=== PATIENT | female | born 1995 | race American Indian/Alaskan Native ===

== ENCOUNTER 2019-12-21 20:40 | Emergency (ER) | payer SELFPAY ==
[2019-12-21 20:50] VITALS: BP 129/86
--- NOTE | 2019-12-21 22:09 | Emergency Department Report ---
Blank Doc - Documentation Documentation: 24-year-old female that presents with abdominal pain and n/v. This initial assessment/diagnostic orders/clinical plan/treatment(s) is/are subject to change based on patient's health status, clinical progression and re- assessment by fellow clinical providers in the ED. Further treatment and workup at subsequent clinical providers discretion. Patient/guardians urged not to elope from the ED as their condition may be serious if not clinically assessed and managed. Initial orders include: 1- Patient sent to [facility] for further evaluation and treatment 2- labs 3- UA
[2019-12-21 22:53] LABS: Basophils % (Auto) 0.6 % (0.0-1.8); Eosinophils # (Auto) 0.2 K/mm3 (0.0-0.4); Hematocrit 40.7 % (30.3-42.9); Hemoglobin 13.9 gm/dl (10.1-14.3); Lymphocytes # (Auto) 1.7 K/mm3 (1.2-5.4); Mean Corpuscular HGB Conc 34 % (30-34); Mean Corpuscular Volume 90 fl (79-97); Monocytes # (Auto) 1.2 K/mm3 (0.0-0.8); Monocytes % (Auto) 15.9 % (0.0-7.3); Platelet Count 214 K/mm3 (140-440); Red Blood Count 4.54 M/mm3 (3.65-5.03); Red Cell Distribution Width 13.8 % (13.2-15.2)
[2019-12-21 23:07] LABS: Bilirubin,Urine NEG (Negative); Blood,Urine NEG (Negative); Color,Urine Yellow (Yellow); Mucus,Urine 2+ /HPF; Protein,Urine <15 mg/dL mg/dL (Negative); Urobilinogen,Urine < 2.0 mg/dL (<2.0)
[2019-12-21 23:14] LABS: Alanine Aminotransferase 7 units/L (7-56); Albumin 4.4 g/dL (3.9-5); BUN/Creatinine Ratio 13; Blood Urea Nitrogen 12 mg/dL (7-17); Calcium 8.9 mg/dL (8.4-10.2)
[2019-12-21 23:15] LABS: Hemolysis Index 23
[2019-12-21] MEDS ORDERED: ALBUTEROL 2.5 MG/3 ML NEBU IH ONE (23:47)
[2019-12-21] MEDS ORDERED: predniSONE 20 MG TAB PO ONE (23:47)
--- NOTE | 2019-12-22 01:10 | Emergency Department Report ---
ED Abdominal Pain HPI - General Chief Complaint: Abdominal Pain Stated Complaint: BELLY BUTTON PAIN Time Seen by Provider: 12/21/19 22:03 Source: patient Mode of arrival: Ambulatory Limitations: No Limitations - History of Present Illness Initial Comments: Ms. Valdes is a 24-year-old female with hx of asthma,that presents with lower abdominal pain and n/v x 3 weeks. pt denies fever or chills. She states she believes she is LMP 10/23/2019. pt denies vaginal bleeding, no vaginal discharge no pelivic discomfort. There is no back pain , no dysuria, frequency, or urgency. pt denies concern for STI. Symptoms are exacerbated by nothing ,Symptoms are relieved by nothing. MD Complaint: abdominal pain Onset/Timin -: week(s) Location: LLQ, RLQ Radiation: LLQ, RLQ Migration to: no migration Severity: moderate Severity scale (0 -10): 3 Quality: cramping Consistency: intermittent Improves With: nothing Worsens With: movement Associated Symptoms: syncope. denies: nausea, vomiting, diarrhea, fever, chills, dysuria, melena - Related Data LMP Date: 10/23/19 Previous Rx's Medication Instructions Recorded Last Taken Type Albuterol INH(or & Nicu Only) 2 puff IH QID PRN #8.5 gram 12/22/19 Unknown Rx [ProAir HFA Inhaler] Ibuprofen [Motrin 800 MG tab] 800 mg PO Q8HR PRN #30 tablet 12/22/19 Unknown Rx predniSONE [Deltasone] 40 mg PO QDAY 5 Days #10 tab 12/22/19 Unknown Rx Allergies Allergy/AdvReac Type Severity Reaction Status Date / Time shellfish derived Allergy Unknown Verified 12/21/19 20:44 ED Review of Systems ROS: Stated complaint: BELLY BUTTON PAIN Other details as noted in HPI Constitutional: denies: chills, fever Eyes: denies: eye pain, eye discharge, vision change ENT: denies: ear pain, throat pain Respiratory: denies: cough, shortness of breath, wheezing Cardiovascular: denies: chest pain, palpitations Endocrine: no symptoms reported Gastrointestinal: abdominal pain (cramping ). denies: nausea, vomiting Genitourinary: denies: urgency, dysuria, discharge Musculoskeletal: denies: back pain, joint swelling, arthralgia Skin: denies: rash, lesions Neurological: denies: headache, weakness, paresthesias Psychiatric: denies: anxiety, depression Hematological/Lymphatic: denies: easy bleeding, easy bruising ED Past Medical Hx - Past Medical History Previous Medical History?: No - Social History Smoking Status: Never Smoker Substance Use Type: Marijuana - Medications Home Medications: Home Medications Medication Instructions Recorded Confirmed Last Taken Type Albuterol INH(or & Nicu Only) 2 puff IH QID PRN #8.5 gram 12/22/19 Unknown Rx [ProAir HFA Inhaler] Ibuprofen [Motrin 800 MG tab] 800 mg PO Q8HR PRN #30 tablet 12/22/19 Unknown Rx predniSONE [Deltasone] 40 mg PO QDAY 5 Days #10 tab 12/22/19 Unknown Rx ED Physical Exam - General Limitations: No Limitations General appearance: alert, in no apparent distress - Head Head exam: Present: atraumatic, normocephalic - Eye Eye exam: Present: normal appearance - ENT ENT exam: Present: mucous membranes moist - Neck Neck exam: Present: normal inspection, full ROM. Absent: tenderness - Respiratory Respiratory exam: Present: normal lung sounds bilaterally, wheezes (exp wheezing bilat ). Absent: respiratory distress, chest wall tenderness - Cardiovascular Cardiovascular Exam: Present: regular rate, normal rhythm, normal heart sounds. Absent: systolic murmur, diastolic murmur, rubs, gallop - GI/Abdominal GI/Abdominal exam: Present: soft, normal bowel sounds. Absent: distended, tenderness, guarding, rebound, rigid, bruit, hernia - Rectal Rectal exam: Present: deferred - Extremities Exam Extremities exam: Present: normal inspection, full ROM, normal capillary refill. Absent: tenderness - Back Exam Back exam: Present: normal inspection, full ROM. Absent: tenderness, CVA tenderness (R), CVA tenderness (L) - Neurological Exam Neurological exam: Present: alert, oriented X3, CN II-XII intact, normal gait - Psychiatric Psychiatric exam: Present: normal affect, normal mood - Skin Skin exam: Present: warm, dry, intact, normal color. Absent: rash ED Course Vital Signs 12/21/19 12/21/19 12/22/19 20:47 22:03 00:10 Temperature 99.4 F 99.4 F Pulse Rate 99 H 89 Pulse Rate [ 91 H Anterior Bilateral Throughout] Respiratory 18 18 Rate Respiratory 17 Rate [Anterior Bilateral Throughout] Blood Pressure 129/86 129/86 O2 Sat by Pulse 97 100 Oximetry ED Medical Decision Making - Lab Data Result diagrams: 12/21/19 22:37 12/21/19 22:37 Labs 12/21/19 12/21/19 12/21/19 22:20 22:37 22:37 WBC 7.6 RBC 4.54 Hgb 13.9 Hct 40.7 MCV 90 MCH 31 MCHC 34 RDW 13.8 Plt Count 214 Lymph % (Auto) 23.0 [place] % (Auto) 15.9 H Eos % (Auto) 2.0 Baso % (Auto) 0.6 Lymph # 1.7 [place] # 1.2 H Eos # 0.2 Baso # 0.0 Seg Neutrophils % 58.5 Seg Neutrophils # 4.4 Sodium 138 Potassium 3.5 L Chloride 101.6 Carbon Dioxide 21 L Anion Gap 19 BUN 12 Creatinine 0.9 Estimated GFR > 60 BUN/Creatinine Ratio 13 Glucose 106 H Calcium 8.9 Total Bilirubin < 0.20 AST 16 ALT 7 Alkaline Phosphatase 48 Total Protein 7.2 Albumin 4.4 Albumin/Globulin Ratio 1.6 Lipase 29 HCG, Qual Urine Color Yellow Urine Turbidity Slightly-cloudy Urine pH 5.0 Ur Specific [place] 1.031 H Urine Protein <15 mg/dl Urine Glucose (UA) Neg Urine Ketones Neg Urine Blood Neg Urine Nitrite Neg Urine Bilirubin Neg Urine Urobilinogen < 2.0 Ur Leukocyte Esterase Neg Urine WBC (Auto) 1.0 Urine RBC (Auto) 1.0 U Epithel Cells (Auto) 13.0 Urine Mucus 2+ 12/21/19 22:37 WBC RBC Hgb Hct MCV MCH MCHC RDW Plt Count Lymph % (Auto) [place] % (Auto) Eos % (Auto) Baso % (Auto) Lymph # [place] # Eos # Baso # Seg Neutrophils % Seg Neutrophils # Sodium Potassium Chloride Carbon Dioxide Anion Gap BUN Creatinine Estimated GFR BUN/Creatinine Ratio Glucose Calcium Total Bilirubin AST ALT Alkaline Phosphatase Total Protein Albumin Albumin/Globulin Ratio Lipase HCG, Qual Negative Urine Color Urine Turbidity Urine pH Ur Specific [place] Urine Protein Urine Glucose (UA) Urine Ketones Urine Blood Urine Nitrite Urine Bilirubin Urine Urobilinogen Ur Leukocyte Esterase Urine WBC (Auto) Urine RBC (Auto) U Epithel Cells (Auto) Urine Mucus - Medical Decision Making test is negative, wheezing resolved after neb tx. ,pt advises that hcg is neg, she pt advises all pain is resolved, breathing is improved, exam is normal , no wheezing, no abd tenderness, all labs normal. she requests albuterol refill, will refill same, short burst steroid, ibuprofen prn, follow up with [facility], follow up with pcp. Critical care attestation.: If time is entered above; I have spent that time in minutes in the direct care of this critically ill patient, excluding procedure time. ED Disposition Clinical Impression: Wheezing Abdominal pain Qualifiers: Abdominal location: lower abdomen, unspecified Qualified Code(s): R10.30 - Lower abdominal pain, unspecified Disposition: TO HOME OR SELFCARE Is pt being admited?: No Does the pt Need Aspirin: No Condition: Stable Instructions: Abdominal Pain (ED) Prescriptions: predniSONE [Deltasone] 40 mg PO QDAY 5 Days #10 tab Ibuprofen [Motrin 800 MG tab] 800 mg PO Q8HR PRN #30 tablet PRN Reason: pain Albuterol INH(or & Nicu Only) [ProAir HFA Inhaler] 2 puff IH QID PRN #8.5 gram PRN Reason: Shortness Of Breath Referrals: EBONIE CALLEJAS MD [Staff Physician] - 3-5 Days Forms: Work/School Release Form(ED) Time of Disposition: 01:23
== END 2019-12-22 01:30 | disposition home or self-care (01) ==
LOC: ED 20:40
DX: R10.30 Lower abdominal pain, unspecified (principal); R06.2 Wheezing; F12.90 Cannabis use, unspecified, uncomplicated; Z91.013 Allergy to seafood; Z79.899 Other long term (current) drug therapy
CPT/HCPCS: 36415; 80053; 81001; 83690; 84703; 85025; 94640; 99283; J7512; 94644

== ENCOUNTER 2020-02-10 16:24 | Emergency (ER) | payer OTHER ==
--- NOTE | 2020-02-10 18:05 | Emergency Department Report ---
ED General Adult HPI - General Chief complaint: Weakness Stated complaint: POSS /FATIGUE Time Seen by Provider: 02/10/20 17:35 Source: patient Mode of arrival: Ambulatory Limitations: No Limitations - History of Present Illness Initial comments: Patient is a 24-year-old female presents emergency room with complaints of "her body not feeling right" that began yesterday. She states yesterday she was working standing on her feet and she began to feel overheated and lightheaded and sat down on the floor. She did not actually have a syncopal episode and did not hit her head. She states that she also has nausea and fatigue. Patient states that she went to a clinic 2 weeks ago and was told that she is . She states her last menstrual cycle was in December. She denies any abdominal pain, vaginal bleeding, urinary symptoms. She denies any past medical history or allergies to medications. /P:0/A:2 - Related Data Previous Rx's Medication Instructions Recorded Last Taken Type Albuterol INH(or & Nicu Only) 2 puff IH QID PRN #8.5 gram 12/22/19 Unknown Rx [ProAir HFA Inhaler] Ibuprofen [Motrin 800 MG tab] 800 mg PO Q8HR PRN #30 tablet 12/22/19 Unknown Rx predniSONE [Deltasone] 40 mg PO QDAY 5 Days #10 tab 12/22/19 Unknown Rx Allergies Allergy/AdvReac Type Severity Reaction Status Date / Time shellfish derived Allergy Unknown Verified 12/21/19 20:44 ED Review of Systems ROS: Stated complaint: POSS /FATIGUE Other details as noted in HPI Comment: All other systems reviewed and negative ED Past Medical Hx - Past Medical History Previous Medical History?: No - Surgical History Past Surgical History?: Yes Additional Surgical History: Right foot surgery - Social History Smoking Status: Never Smoker Substance Use Type: Marijuana - Medications Home Medications: Home Medications Medication Instructions Recorded Confirmed Last Taken Type Albuterol INH(or & Nicu Only) 2 puff IH QID PRN #8.5 gram 12/22/19 Unknown Rx [ProAir HFA Inhaler] Ibuprofen [Motrin 800 MG tab] 800 mg PO Q8HR PRN #30 tablet 12/22/19 Unknown Rx predniSONE [Deltasone] 40 mg PO QDAY 5 Days #10 tab 12/22/19 Unknown Rx ED Physical Exam - General Limitations: No Limitations General appearance: alert, in no apparent distress - Head Head exam: Present: atraumatic, normocephalic - Eye Eye exam: Present: normal appearance, PERRL, EOMI - ENT ENT exam: Present: mucous membranes moist - Respiratory Respiratory exam: Present: normal lung sounds bilaterally. Absent: respiratory distress, wheezes, rales, rhonchi, stridor, chest wall tenderness, accessory muscle use, decreased breath sounds, prolonged expiratory - Cardiovascular Cardiovascular Exam: Present: regular rate, normal rhythm, normal heart sounds. Absent: systolic murmur, diastolic murmur, rubs, gallop - GI/Abdominal GI/Abdominal exam: Present: soft, normal bowel sounds. Absent: distended, tenderness, guarding, rebound, rigid - Neurological Exam Neurological exam: Present: alert, oriented X3, CN II-XII intact, normal gait. Absent: motor sensory deficit - Psychiatric Psychiatric exam: Present: normal affect, normal mood - Skin Skin exam: Present: warm, dry, intact ED Course Vital Signs 02/10/20 02/10/20 16:31 21:10 Temperature 98.2 F 97.9 F Pulse Rate 87 68 Respiratory 16 16 Rate Blood Pressure 127/89 137/86 [Right] O2 Sat by Pulse 98 100 Oximetry ED Medical Decision Making - Lab Data Result diagrams: 02/10/20 17:59 02/10/20 17:59 - EKG Data EKG shows normal: sinus rhythm, axis, intervals, QRS complexes, ST-T waves Rate: tachycardia (101) - Radiology Data Radiology results: report reviewed US OB <= 14 weeks fetus, US OB transvaginal INDICATION / CLINICAL INFORMATION: , cramping. COMPARISON: None available. FINDINGS: Single viable intrauterine gestation is demonstrated with a crown-rump length of 14 mm. This would correspond to a 7 week 5 day gestation. Heart rate was observed at a rate of 145 bpm. A 1.2 cm right ovarian cyst is identified. The left ovary is normal. There are no fluid collections seen in the cul-de-sac. IMPRESSION: 1. Single viable 7 week 5 day intrauterine gestation. Signer Name: Marcos Lawson MD Signed: 02/10/2020 8:51 PM Workstation Name: [id number] Transcribed By: BRENDA Dictated By: Marcos Lawson MD Electronically Authenticated By: Marcos Lawson MD Signed Date/Time: 02/10/202050 DD/ 48 TD/TT: - Medical Decision Making Patient is a 24-year-old female presents emergency room with complaints of "her body not feeling right" that began yesterday. She states yesterday she was working standing on her feet and she began to feel overheated and lightheaded and sat down on the floor. She did not actually have a syncopal episode and did not hit her head. She states that she also has nausea and fatigue. Patient states that she went to a clinic 2 weeks ago and was told that she is . She states her last menstrual cycle was in December. She denies any abdominal pain, vaginal bleeding, urinary symptoms. She denies any past medical history or allergies to medications. /P:0/A:2. Vitals are normal. No abnormality on physical examination as documented in chart. EKG is within normal limits. Mild elevation in white blood cell count, very mild dehydration, patient is tolerating p.o. intake, encouraged increasing oral intake, UA without evidence of [place]TI, [place] [id number]. OB US: 1. Single viable 7 week 5 day intrauterine gestation. Patient denies any symptoms currently. Discussed all results with patient. Patient will be referred to an [facility] INSPECT[facility]. advised pt Please increase your fluid intake. Please take a vitamin [id number]. Follow-up with WE[facility] AND MEASURES INSPECTOR. Return to emergency room for any new or worsening symptoms. - Differential Diagnosis IUP, ectopic, anemia, ovarian cyst, miscarriage, UTI Critical care attestation.: If time is entered above; I have spent that time in minutes in the direct care of this critically ill patient, excluding procedure time. ED Disposition Clinical Impression: Lightheadedness, Right ovarian cyst Qualifiers: Weeks of gestation: less than 8 weeks Qualified Code(s): Z3A.01 - Less than 8 weeks gestation of Disposition: DC-01 TO HOME OR SELFCARE Is pt being admited?: No Does the pt Need Aspirin: No Condition: Stable Instructions: (ED), Ovarian Cyst (ED), Lightheadedness (ED) Additional Instructions: Please increase your fluid intake. Please take a vitamin [id number]. Follow-up with WE[facility]S AND MEASURES INSPECTOR. Return to emergency room for any new or worsening symptoms. Referrals: [facility] [Provider Group] - 3-5 Days [facility] [Provider Group] - 3-5 Days [facility] [Provider Group] - 3-5 Days [facility] [Provider Group] - 3-5 Days Time of Disposition: 21:01 Print Language: CITIZEN OF [place]
[2020-02-10 18:10] LABS: Basophils # (Auto) 0.1 K/mm3 (0.0-0.1); Basophils % (Auto) 0.6 % (0.0-1.8); Eosinophils # (Auto) 0.1 K/mm3 (0.0-0.4); Hematocrit 39.3 % (30.3-42.9); Hemoglobin 12.8 gm/dl (10.1-14.3); Lymphocytes # (Auto) 3.2 K/mm3 (1.2-5.4); Lymphocytes % (Auto) 24.3 % (13.4-35.0); Mean Corpuscular HGB Conc 33 % (30-34); Mean Corpuscular Volume 90 fl (79-97); Monocytes # (Auto) 0.9 K/mm3 (0.0-0.8); Monocytes % (Auto) 6.5 % (0.0-7.3); Platelet Count 263 K/mm3 (140-440); Red Blood Count 4.37 M/mm3 (3.65-5.03); Red Cell Distribution Width 13.1 % (13.2-15.2)
[2020-02-10 18:32] LABS: Alanine Aminotransferase 10 units/L (7-56); Albumin 4.3 g/dL (3.9-5); BUN/Creatinine Ratio 17; Blood Urea Nitrogen 10 mg/dL (7-17); Calcium 9.5 mg/dL (8.4-10.2); Hemolysis Index 10
[2020-02-10 18:45] LABS: HCG Qualitative,Urine Positive (Negative)
[2020-02-10 18:46] LABS: Bilirubin,Urine NEG (Negative); Blood,Urine LG (Negative); Color,Urine Yellow (Yellow); Mucus,Urine FEW /HPF; Protein,Urine <15 mg/dL mg/dL (Negative); Urobilinogen,Urine < 2.0 mg/dL (<2.0)
--- NOTE | 2020-02-10 20:55 | Ultrasound Report ---
US OB <= 14 weeks fetus, US OB transvaginal INDICATION / CLINICAL INFORMATION: , cramping. COMPARISON: None available. FINDINGS: Single viable intrauterine gestation is demonstrated with a crown-rump length of 14 mm. This would co rrespond to a 7 week 5 day gestation. Heart rate was observed at a rate of 145 bpm. A 1.2 cm right ovarian cyst is identified. The left ovary is normal. There are no fluid collections seen in the cul-de-sac. IMPRESSION: 1. Single viable 7 week 5 day intrauterine gestation. Signer Name: Marcos Lawson MD Signed: 02/10/2020 8:51 PM Workstation Name: [id number]
[2020-02-10 21:11] VITALS: BP 137/86
== END 2020-02-10 21:11 | disposition home or self-care (01) ==
LOC: ED 16:24
DX: O26.811 Pregnancy related exhaustion and fatigue, first trimester (principal); O34.81 Maternal care for other abnormalities of pelvic organs, first trimester; N83.209 Unspecified ovarian cyst, unspecified side; F12.10 Cannabis abuse, uncomplicated; Z3A.01 Less than 8 weeks gestation of pregnancy; Z98.890 Other specified postprocedural states; Z91.013 Allergy to seafood; Z79.1 Long term (current) use of non-steroidal anti-inflammatories (NSAID); Z79.899 Other long term (current) drug therapy
CPT/HCPCS: 36415; 76801; 76817; 80053; 81001; 81025; 83735; 84702; 85025; 93005

== ENCOUNTER 2021-03-22 22:23 | Emergency (ER) | payer OTHER ==
[2021-03-22 23:05] VITALS: BP 141/92
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
--- NOTE | 2021-03-23 01:19 | Emergency Department Report ---
ED General Adult HPI - General Chief complaint: Weakness Stated complaint: NOSE PAIN/WEAKNESS Time Seen by Provider: 03/22/21 23:19 Source: patient Mode of arrival: Ambulatory Limitations: No Limitations - Related Data Previous Rx's Medication Instructions Recorded Last Taken Type Albuterol Mdi (or & Nicu Only) 2 puff IH QID PRN #8.5 gram 12/22/19 Unknown Rx [ProAir HFA Inhaler] Ibuprofen [Motrin 800 MG tab] 800 mg PO Q8HR PRN #30 tablet 12/22/19 Unknown Rx predniSONE [Deltasone] 40 mg PO QDAY 5 Days #10 tab 12/22/19 Unknown Rx Clindamycin [Clindamycin CAP] 150 mg PO Q8HR #30 capsule 03/23/21 Unknown Rx Ketorolac [Toradol] 10 mg PO Q6H PRN #15 tablet 03/23/21 Unknown Rx Mupirocin Calcium [Bactroban Nasal 0.5 tube NS BID #1 tube 03/23/21 Unknown Rx 2%] Allergies Allergy/AdvReac Type Severity Reaction Status Date / Time shellfish derived Allergy Unknown Verified 12/21/19 20:44 ED Review of Systems ROS: Stated complaint: NOSE PAIN/WEAKNESS Other details as noted in HPI Comment: All other systems reviewed and negative ED Past Medical Hx - Past Medical History Previous Medical History?: No Hx Seizures: Yes (LAST ATTACK 3 YEARS AGO) Hx Asthma: Yes (LAST ATTACK ABOUT 1 YEAR AGO) - Surgical History Past Surgical History?: No Additional Surgical History: Right foot surgery - Social History Smoking Status: Never Smoker - Medications Home Medications: Home Medications Medication Instructions Recorded Confirmed Last Taken Type Albuterol Mdi (or & Nicu Only) 2 puff IH QID PRN #8.5 gram 12/22/19 Unknown Rx [ProAir HFA Inhaler] Ibuprofen [Motrin 800 MG tab] 800 mg PO Q8HR PRN #30 tablet 12/22/19 Unknown Rx predniSONE [Deltasone] 40 mg PO QDAY 5 Days #10 tab 12/22/19 Unknown Rx Clindamycin [Clindamycin CAP] 150 mg PO Q8HR #30 capsule 03/23/21 Unknown Rx Ketorolac [Toradol] 10 mg PO Q6H PRN #15 tablet 03/23/21 Unknown Rx Mupirocin Calcium [Bactroban Nasal 0.5 tube NS BID #1 tube 03/23/21 Unknown Rx 2%] ED Physical Exam - General Limitations: No Limitations General appearance: alert, in no apparent distress - Head Head exam: Present: atraumatic, normocephalic - Eye Eye exam: Present: normal appearance, PERRL, EOMI Pupils: Present: normal accommodation - ENT ENT exam: Present: normal exam, normal orophraynx, mucous membranes moist, TM's normal bilaterally, normal external ear exam - Neck Neck exam: Present: normal inspection, full ROM - Respiratory Respiratory exam: Present: normal lung sounds bilaterally. Absent: respiratory distress, wheezes, rales, chest wall tenderness, accessory muscle use - Cardiovascular Cardiovascular Exam: Present: regular rate, normal rhythm. Absent: systolic murmur, diastolic murmur, rubs, gallop - GI/Abdominal GI/Abdominal exam: Present: soft, normal bowel sounds. Absent: tenderness, guarding, hypoactive bowel sounds, organomegaly - Extremities Exam Extremities exam: Present: normal inspection, normal capillary refill - Back Exam Back exam: Present: normal inspection. Absent: CVA tenderness (R), CVA tenderness (L) - Neurological Exam Neurological exam: Present: alert, oriented X3, CN II-XII intact, normal gait - Psychiatric Psychiatric exam: Present: normal affect, normal mood. Absent: agitated, flat affect, homicidal ideation - Skin Skin exam: Present: warm, dry, intact, normal color. Absent: rash, diaphoretic, erythema, urticaria ED Course Vital Signs 03/22/21 23:01 Temperature 97.8 F Pulse Rate 84 Respiratory 18 Rate Blood Pressure 141/92 O2 Sat by Pulse 100 Oximetry ED Medical Decision Making - Radiology Data Radiology results: report reviewed [facility] [address] [place] [id number] Cat Scan Report Signed Patient: ESSENCE DAY MR#: [id number] : 1995 Acct:[id number] Age/Sex: 25 / F ADM Date: 03/22/21 Loc: ED Attending Dr: Ordering Physician: SOTERO GATES Date of Service: 03/22/21 Procedure(s): CT facial bones wo con Accession Number(s): [id number] cc: SOTERO GATES CT facial bones wo con INDICATION / CLINICAL INFORMATION: Swelling to LEFT side of nose; denies trauma / assault. TECHNIQUE: Axial CT imaging of the facial bones was obtained without contrast. Coronal and sagittal reformatted imaging obtained and reviewed. All CT scans at this location are performed using CT dose reduction for ALARA by means of automated exposure control. COMPARISON: None available. FINDINGS: The facial bones are intact. No fracture or focal osseous abnormality. There is minimal mucosal thickening in the left maxillary antrum, and left anterior ethmoid air cell. No air-fluid levels. The remainder of the sinuses are clear. Both orbits are intact. There does appear to be some very minimal soft tissue swelling involving the left side of the nose. I do not see focal fluid collection on this noncontrast study. This mild soft tissue swelling is nonspecific. Nasal bones are intact. IMPRESSION: 1. Nonspecific minimal soft tissue swelling along the left side of the nose. 2. Very minimal mucosal thickening in the left maxillary antrum and anterior left ethmoid air cell. Signer Name: Julia Lazo MD Signed: 03/23/2021 12:28 AM Workstation Name: [id number] Transcribed By: Dictated By: Julia Lazo MD Electronically Authenticated By: Julia Lazo MD Signed Date/Time: 03/23/2127 DD/ TD/TT: - Medical Decision Making 22-year-old female is emerged problem with left nasal swelling suggestive some early cellulitis. Plan is antimicrobial nasal ointment in conjunction with antibiotic tablets. And reevaluate in in 3 days. Presentation consistent with simple cellulitis. Given history, exam, work-up I have low suspicion for necrotizing fasciitis, abscess, osteomyelitis, DVT or other emergent problem as cause for this presentation. The patient is nontoxic appearing and vital signs are stable. There is a reasonably low risk for treatment failure based on history. Strict return precautions were discussed with patient with full understanding. Advised patient to follow-up promptly with primary care care doctor within the next 48 hours. Critical care attestation.: If time is entered above; I have spent that time in minutes in the direct care of this critically ill patient, excluding procedure time. ED Disposition Clinical Impression: Cellulitis Disposition: DC-01 TO HOME OR SELFCARE Is pt being admited?: No Does the pt Need Aspirin: No Condition: Stable Instructions: Cellulitis, Adult, Cellulitis, Adult, [id number] Prescriptions: Mupirocin Calcium [Bactroban Nasal 2%] 0.5 tube NS BID #1 tube Clindamycin [Clindamycin CAP] 150 mg PO Q8HR #30 capsule Ketorolac [Toradol] 10 mg PO Q6H PRN #15 tablet PRN Reason: Pain Referrals: PRIMARY CARE, [Primary Care Provider] - 3-5 Days [facility] [Provider Group] - 3-5 Days
[2021-03-23 01:24] LABS: HCG Qualitative,Urine Positive (Negative)
== END 2021-03-23 02:30 | disposition home or self-care (01) ==
LOC: ED 22:23
DX: L03.90 Cellulitis, unspecified (principal); J45.909 Unspecified asthma, uncomplicated; Z91.013 Allergy to seafood; Z79.899 Other long term (current) drug therapy; Z86.69 Personal history of other diseases of the nervous system and sense organs; Z98.890 Other specified postprocedural states
CPT/HCPCS: 70450; 70486; 81025

== ENCOUNTER 2021-07-31 12:03 | Emergency (ER) | payer OTHER ==
[2021-07-31 12:23] VITALS: BP 122/87
[2021-07-31] MEDS ORDERED: IPRATROPIUM 0.02% NEBU 2.5 ML IH ONE (12:27)
[2021-07-31] MEDS ORDERED: ALBUTEROL 2.5 MG/3 ML NEBU IH ONE (12:27)
[2021-07-31] MEDS ORDERED: dexAMETHasone 20 MG/5 ML VIAL IM ONE (12:27)
--- NOTE | 2021-07-31 13:16 | Emergency Department Report ---
ED Asthma HPI - General Chief Complaint: Upper Respiratory Infection Stated Complaint: MUCUS/SOB Time Seen by Provider: 07/31/21 12:23 Source: patient Mode of arrival: Ambulatory Limitations: No Limitations - History of Present Illness Initial Comments: This is a 25-year-old female nontoxic, well nourished in appearance, no acute signs of distress presents to the ED with c/o of acute on chronic asthma exacerbation. Patient stated she is out of her albuterol inhaler several months. Patient stated has some chest congestion and cough as well. Denies any other symptoms or complaints. Patient denies any sick contact. Patient denies any recent travels, long car, recent hospital stays. Patient denies any calf pain or calf tenderness. Patient denies any chest pain, short of breath, fever, chills, nausea, vomiting, hemoptysis, numbness, tingling, headache or stiff neck. Past medical history includes asthma. Stated is fully COVID vaccinated. MD Complaint: "asthma attack", wheezing -: Last night Asthma History: childhood onset Severity: mild Context: none known Associated Symptoms: productive cough. denies: dry cough, fever, chest pain, hemoptysis, leg edema, syncope - Related Data Current Asthma Therapy: none Previous Rx's Medication Instructions Recorded Last Taken Type Albuterol Mdi (or & Nicu Only) 2 puff IH QID PRN #8.5 gram 12/22/19 Unknown Rx [ProAir HFA Inhaler] Ibuprofen [Motrin 800 MG tab] 800 mg PO Q8HR PRN #30 tablet 12/22/19 Unknown Rx predniSONE [Deltasone] 40 mg PO QDAY 5 Days #10 tab 12/22/19 Unknown Rx Clindamycin [Clindamycin CAP] 150 mg PO Q8HR #30 capsule 03/23/21 Unknown Rx Ketorolac [Toradol] 10 mg PO Q6H PRN #15 tablet 03/23/21 Unknown Rx Mupirocin Calcium [Bactroban Nasal 0.5 tube NS BID #1 tube 03/23/21 Unknown Rx 2%] Albuterol Mdi (or & Nicu Only) 2 puff IH QID PRN #8.5 gram 07/31/21 Unknown Rx [ProAir HFA Inhaler] Prednisone [predniSONE 10 mg 10 mg PO .TAPER #1 tab.ds.pk 07/31/21 Unknown Rx (6-Day Pack, 21 Tabs)] Allergies Allergy/AdvReac Type Severity Reaction Status Date / Time shellfish derived Allergy Unknown Verified 12/21/19 20:44 ED Review of Systems ROS: Stated complaint: MUCUS/SOB Other details as noted in HPI Constitutional: denies: chills, fever Eyes: denies: eye pain, eye discharge, vision change ENT: congestion. denies: ear pain, throat pain Respiratory: cough, wheezing. denies: shortness of breath Cardiovascular: denies: chest pain, palpitations Endocrine: no symptoms reported Gastrointestinal: denies: abdominal pain, nausea, diarrhea Genitourinary: denies: urgency, dysuria, discharge Musculoskeletal: denies: back pain, joint swelling, arthralgia Skin: denies: rash, lesions Neurological: denies: headache, weakness, paresthesias Psychiatric: denies: anxiety, depression Hematological/Lymphatic: denies: easy bleeding, easy bruising ED Past Medical Hx - Past Medical History Previous Medical History?: Yes Hx Seizures: Yes (LAST ATTACK 3 YEARS AGO) Hx Asthma: Yes (LAST ATTACK ABOUT 1 YEAR AGO) - Surgical History Past Surgical History?: Yes Additional Surgical History: Right foot surgery - Social History Smoking Status: Never Smoker - Medications Home Medications: Home Medications Medication Instructions Recorded Confirmed Last Taken Type Albuterol Mdi (or & Nicu Only) 2 puff IH QID PRN #8.5 gram 12/22/19 Unknown Rx [ProAir HFA Inhaler] Ibuprofen [Motrin 800 MG tab] 800 mg PO Q8HR PRN #30 tablet 12/22/19 Unknown Rx predniSONE [Deltasone] 40 mg PO QDAY 5 Days #10 tab 12/22/19 Unknown Rx Clindamycin [Clindamycin CAP] 150 mg PO Q8HR #30 capsule 03/23/21 Unknown Rx Ketorolac [Toradol] 10 mg PO Q6H PRN #15 tablet 03/23/21 Unknown Rx Mupirocin Calcium [Bactroban Nasal 0.5 tube NS BID #1 tube 03/23/21 Unknown Rx 2%] Albuterol Mdi (or & Nicu Only) 2 puff IH QID PRN #8.5 gram 07/31/21 Unknown Rx [ProAir HFA Inhaler] Prednisone [predniSONE 10 mg 10 mg PO .TAPER #1 tab.ds.pk 07/31/21 Unknown Rx (6-Day Pack, 21 Tabs)] ED Physical Exam - General Limitations: No Limitations General appearance: alert, in no apparent distress - Head Head exam: Present: atraumatic, normocephalic - Eye Eye exam: Present: normal appearance - ENT ENT exam: Present: normal exam, normal orophraynx - Neck Neck exam: Present: normal inspection, full ROM. Absent: tenderness, meningismus, lymphadenopathy - Respiratory Respiratory exam: Present: wheezes (Expiratory wheezing bilaterally). Absent: respiratory distress, rales, rhonchi, stridor, chest wall tenderness, accessory muscle use, decreased breath sounds, prolonged expiratory - Cardiovascular Cardiovascular Exam: Present: regular rate, normal rhythm, normal heart sounds. Absent: bradycardia, tachycardia, irregular rhythm, systolic murmur, diastolic murmur, rubs, gallop - Extremities Exam Extremities exam: Present: full ROM - Back Exam Back exam: Present: full ROM - Neurological Exam Neurological exam: Present: alert, oriented X3, normal gait - Psychiatric Psychiatric exam: Present: normal affect, normal mood - Skin Skin exam: Present: warm, dry, intact, normal color. Absent: rash ED Course Vital Signs 07/31/21 12:21 Temperature 97.7 F Pulse Rate 90 Respiratory 16 Rate Blood Pressure 122/87 [Left] O2 Sat by Pulse 93 Oximetry - Reevaluation(s) Reevaluation #1: 07/31/21 13:16 Patient is speaking in full sentences with no signs of distress noted. ED Medical Decision Making - Radiology Data [facility] [address] [place] [address] XRay Report Signed Patient: ESSENCE DAY MR#: [id number] : 1995 Acct:[id number] Age/Sex: 25 / F ADM Date: 07/31/21 Loc: ED Attending Dr: Ordering Physician: RAJ BRAMBILA NP Date of Service: 07/31/21 Procedure(s): XR chest routine 2V Accession Number(s): [id number] cc: RAJ BRAMBILA NP Fluoro Time In Minutes: CHEST PA AND LATERAL VIEWS INDICATION: cough/sob/wheezing. COMPARISON: None. FINDINGS: Support devices: None. Heart: Within normal limits. Lungs/Pleura: No acute pulmonary or pleural findings. IMPRESSION: 1. No acute findings. Signer Name: Nestor Joseph MD Signed: 07/31/2021 1:47 PM Workstation Name: [id number] Transcribed By: JUDY Dictated By: Nestor Joseph MD Electronically Authenticated By: Nestor Joseph MD Signed Date/Time: 07/31/211346 DD/ 45 TD/TT: - Medical Decision Making This is a 25-year-old female that presents with asthma exacerbation. Patient is stable and was examined by me. Chest x-ray has been obtained and dictated by the radiologist within normal limits. Patient is notified of the x-ray report with no questions noted by the patient. Patient did receive breathing treatment and steroids in the ED which patient the symptoms has resolved and subsided. Posttreatment and there is no wheezing upon auscultation. Patient is discharged with albuterol and prednisone. Patient was referred to Follow-up with a primary care doctor in 3-5 days or if symptoms worsen and continue return to emergency room as soon as possible. At time of discharge, the patient does not seem toxic or ill in appearance. No acute signs of distress noted. Patient ag simran to discharge treatment plan of care. No further questions noted by the patient. This chart is dictated with using [employer] Dictation Program Critical care attestation.: If time is entered above; I have spent that time in minutes in the direct care of this critically ill patient, excluding procedure time. ED Disposition Clinical Impression: Asthma exacerbation Qualifiers: Asthma severity: mild Asthma persistence: intermittent Qualified Code(s): J45 .21 - Mild intermittent asthma with (acute) exacerbation Disposition: 01 HOME / SELF CARE / HOMELESS Is pt being admited?: No Does the pt Need Aspirin: No Condition: Stable Instructions: Asthma, Adult Additional Instructions: Follow-up with a primary care doctor in 3-5 days or if symptoms worsen and continue return to emergency room as soon as possible. Prescriptions: Prednisone [predniSONE 10 mg (6-Day Pack, 21 Tabs)] 10 mg PO .TAPER #1 tab.ds.pk Albuterol Mdi (or & Nicu Only) [ProAir HFA Inhaler] 2 puff IH QID PRN #8.5 gram PRN Reason: Shortness Of Breath Referrals: PRIMARY CARE, [Referring] - 3-5 Days ROBBIE ALAMO MD [Staff Physician] - 3-5 Days Forms: Work/School Release Form(ED) Time of Disposition: 14:10
--- NOTE | 2021-07-31 13:51 | XRay Report ---
CHEST PA AND LATERAL VIEWS INDICATION: cough/sob/wheezing. COMPARISON: None. FINDINGS: Support devices: None. Heart: Within normal limits. Lungs/Pleura: No acute pulmonary or pleural findings. IMPRESSION: 1. No acute findings. Signer Name: Nestor Joseph MD Signed: 07/31/2021 1:47 PM Workstation Name: [id number]
== END 2021-07-31 14:37 | disposition home or self-care (01) ==
LOC: ED 12:03
DX: J45.901 Unspecified asthma with (acute) exacerbation (principal); Z91.013 Allergy to seafood
CPT/HCPCS: 71046; 94640; 96372; 99283; J1100